=== PATIENT | female | born 1985 | race Caucasian/White ===

== ENCOUNTER 2017-06-20 13:21 | Emergency (ER) | payer BC ==
[2017-06-20 14:06] VITALS: BP 131/70; PULSE 81; RESP 18; TEMP 98.6; O2SAT 100
[2017-06-20 14:40] LABS: BILIRUBIN, URINE NEG (NEG); BLOOD, URINE MOD (NEG); GLUCOSE,URINE NEG (NEG); KETONE, URINE NEG (NEG); NITRITE,URINE NEG (NEG); PH, URINE 7.5 (5.0-8.5); URINE COLOR LIGHT-YELLOW (YELLW/STRAW); URINE LEUKOCYTE ESTERASE NEG (NEG)
[2017-06-20 14:49] LABS: AUTOMATED NEUTROPHIL # 5.8 TH/MM3 (1.8-7.7); BASOPHIL # 0.1 TH/MM3 (0-0.2); BASOPHIL % 0.8 % (0.0-2.0); EOSINOPHIL # 0.3 TH/MM3 (0-0.4); EOSINOPHIL % 3.1 % (0.0-4.0); HEMATOCRIT 38.5 % (35.0-46.0); HEMOGLOBIN 13.5 GM/DL (11.6-15.3); LYMPH % 16.5 % (9.0-44.0); LYMPHOCYTE # 1.4 TH/MM3 (1.0-4.8); MEAN CORPUSCULAR HEMOGLOBIN 31.5 PG (27.0-34.0); MEAN PLATELET VOLUME 8.5 FL (7.0-11.0); MONO % 9.7 % (0.0-8.0); MONOCYTE # 0.8 TH/MM3 (0-0.9); NEUT % 69.9 % (16.0-70.0); PLATELET COUNT 355 TH/MM3 (150-450); RED BLOOD COUNT 4.27 MIL/MM3 (4.00-5.30); RED CELL DISTRIBUTION WIDTH 14.9 % (11.6-17.2); WHITE BLOOD COUNT 8.2 TH/MM3 (4.0-11.0)
[2017-06-20 15:02] LABS: ALBUMIN 4.4 GM/DL (3.4-5.0); ALT (GPT) 21 U/L (10-53); AST (GOT) 10 U/L (15-37); BLOOD UREA NITROGEN 11 MG/DL (7-18); CALCIUM 8.8 MG/DL (8.5-10.1); CHLORIDE 106 MEQ/L (98-107); CREATININE 0.67 MG/DL (0.50-1.00); GLOMERULAR FILTRATION RATE 104 ML/MIN (>89); GLUCOSE,RANDOM 81 MG/DL (74-106); SODIUM (NA) 139 MEQ/L (136-145)
[2017-06-20 15:05] LABS: ALKALINE PHOSPHATASE 94 U/L (45-117); TOTAL BILIRUBIN ADULT 0.2 MG/DL (0.2-1.0); TOTAL PROTEIN 8.7 GM/DL (6.4-8.2)
[2017-06-20] MEDS ORDERED: PANT40TA3 PO (15:40)
[2017-06-20] MEDS ORDERED: IMUR50TA5 PO (15:40)
[2017-06-20] MEDS ORDERED: CETI-1 (15:41)
--- NOTE | 2017-06-20 16:46 | PD ---
HPI Chief Complaint: Related Problem Time Seen by Provider: 16:13 Travel History International Travel<30 days: No Contact w/Intl Traveler<30days: No Traveled to known affect area: No History of Present Illness HPI 31-year-old approximately 6 week female presents to the emergency room for evaluation of vaginal bleeding that started earlier today. Patient states she woke up with blood in her underwear and has been continuously spotting throughout the day. She has had a few gushes. She has had very mild cramping. Denies any associated nausea or vomiting. She called her ORTHODONTIC LABORATORY TECHNICIAN but they would not get back to her so she came to the emergency room. She is taking vitamins. She has history of Crohn's, allergies, and GERD. She does not remember getting RhoGam with her previous . PFSH Past Medical History Asthma: Yes Autoimmune Disease: Yes (CROHNS ) Medical other: Yes (ALOPECIA) ?: Past Surgical History Section: Yes (x1) Genitourinary Surgery: Yes (MULTIPLE COLONSCOPIES) Oral Surgery: Yes (WISDOM TEETH) Other Surgery: Yes (INGUINAL HERNIA REPAIR) Social History Alcohol Use: No Tobacco Use: No Substance Use: No Allergies-Medications (Allergen,Severity, Reaction): Coded Allergies: certolizumab pegol (Verified Allergy, Unknown, 06/20/17) sumatriptan (Verified Allergy, Unknown, 06/20/17) Reported Meds & Prescriptions Reported Meds & Active Scripts Active Reported Zyrtec (Cetirizine HCl) 10 Mg Tablet Pantoprazole (Pantoprazole Sodium) 40 Mg Tab 40 Mg PO DAILY Imuran (Azathioprine) 50 Mg Tab 50 Mg PO BID Hazardous agent: use appropriate precautions for handling and disposal. Review of Systems Except as stated in HPI: all other systems reviewed are Neg Physical Exam Narrative GENERAL: Well-nourished, well-developed female no acute distress. Afebrile. Ambulatory. SKIN: Focused skin assessment warm/dry. HEAD: Normocephalic. EYES: No scleral icterus. No injection or drainage. NECK: Supple, trachea midline. No JVD or lymphadenopathy. CARDIOVASCULAR: Regular rate and rhythm without murmurs, gallops, or rubs. RESPIRATORY: Breath sounds equal bilaterally. No accessory muscle use. GASTROINTESTINAL: Abdomen soft, non-tender, nondistended. Data Data Last Documented VS Vital Signs Date Time Temp Pulse Resp B/P (MAP) Pulse Ox O2 Delivery O2 Flow Rate FiO2 06/20/17 14:06 98.6 81 18 131/70 (90) 100 Orders Orders Beta Hcg (Quant/Titer) (06/20/17 14:08) Complete Blood Count With Diff (06/20/17 14:08) Comprehensive Metabolic Panel (06/20/17 14:08) Complete Rh (06/20/17 14:08) Urinalysis - C+S If Indicated (06/20/17 14:08) Ed Discharge Order (06/20/17 18:43) Labs Laboratory Tests Test 06/20/17 14:10 06/20/17 14:18 Urine Color LIGHT-YELLOW Urine Turbidity CLEAR Urine pH 7.5 Urine Specific [place] 1.006 Urine Protein NEG mg/dL Urine Glucose (UA) NEG mg/dL Urine Ketones NEG mg/dL Urine Occult Blood MOD Urine Nitrite NEG Urine Bilirubin NEG Urine Urobilinogen LESS THAN 2.0 MG/DL Urine Leukocyte Esterase NEG Urine RBC 5 /hpf Urine WBC 1 /hpf Microscopic Urinalysis Comment CULT NOT INDICATED White Blood Count 8.2 TH/MM3 Red Blood Count 4.27 MIL/MM3 Hemoglobin 13.5 GM/DL Hematocrit 38.5 % Mean Corpuscular Volume 90.0 FL Mean Corpuscular Hemoglobin 31.5 PG Mean Corpuscular Hemoglobin Concent 35.0 % Red Cell Distribution Width 14.9 % Platelet Count 355 TH/MM3 Mean Platelet Volume 8.5 FL Neutrophils (%) (Auto) 69.9 % Lymphocytes (%) (Auto) 16.5 % Monocytes (%) (Auto) 9.7 % Eosinophils (%) (Auto) 3.1 % Basophils (%) (Auto) 0.8 % Neutrophils # (Auto) 5.8 TH/MM3 Lymphocytes # (Auto) 1.4 TH/MM3 Monocytes # (Auto) 0.8 TH/MM3 Eosinophils # (Auto) 0.3 TH/MM3 Basophils # (Auto) 0.1 TH/MM3 CBC Comment DIFF FINAL Differential Comment Blood Urea Nitrogen 11 MG/DL Creatinine 0.67 MG/DL Random Glucose 81 MG/DL Total Protein 8.7 GM/DL Albumin 4.4 GM/DL Calcium Level 8.8 MG/DL Alkaline Phosphatase 94 U/L Aspartate Amino Transf (AST/SGOT) 10 U/L Alanine Aminotransferase (ALT/SGPT) 21 U/L Total Bilirubin 0.2 MG/DL Sodium Level 139 MEQ/L Potassium Level 3.7 MEQ/L Chloride Level 106 MEQ/L Carbon Dioxide Level 28.0 MEQ/L Anion Gap 5 MEQ/L Estimat Glomerular Filtration Rate 104 ML/MIN Human Chorionic Gonadotropin, Quant 90 MIU/ML MDM Medical Decision Making Medical Screen Exam Complete: Yes Emergency Medical Condition: Yes Medical Record Reviewed: Yes Differential Diagnosis miscarriage, subchorionic hemorrhage, ectopic Narrative Course 31-year-old 6 week female presents to the emergency room for evaluation of vaginal bleeding that started earlier today. She denies significant cramping, fever, chills, nausea, vomiting. Abdomen soft, nontender. CBC and CMP are completely unremarkable. Beta-hCG is 90; far too early to see anything on ultrasound. UA shows some blood without evidence of infection. RH was initially reported as negative and RhoGam was ordered. Lab was contacted and stated there was a clerical error and her actual Rh status is positive. RhoGam was canceled and not administered. Patient was made aware. I spoke to my attending physician who agrees that patient should have pelvic rest and pelvic examination would not change treatment or plan at this time. She was told to follow-up in 2-3 days for repeat beta hCG. She made an appointment with her ORTHODONTIC LABORATORY TECHNICIAN in 2 days. She understands and agrees to plan. Diagnosis Primary Impression: Threatened miscarriage in early Referrals: Prevocational/Rehabilitation Counselor Additional Instructions: Follow-up in 2-3 days for repeat beta hCG. Today your level was 90. Return to the emergency room for worsening symptoms including significant bleeding or cramping. Disposition: 01 DISCHARGE HOME Condition: Stable Salina Trevino Jun 20, 2017 16:46
== END 2017-06-20 19:48 | disposition home or self-care (01) ==
LOC: NEPD 13:21
DX: O20.0 Threatened abortion (principal); Z3A.01 Less than 8 weeks gestation of pregnancy
CPT/HCPCS: 80053; 81001; 84702; 85025; 86901; 99283